=== PATIENT | male | born 1965 | race Caucasian/White ===

== ENCOUNTER 2016-11-28 23:57 | Emergency (ER) | payer MEDICARE ==
[2016-11-29 00:13] VITALS: BP 122/88
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
== END 2016-11-29 00:25 | disposition home or self-care (01) ==
LOC: ED 23:57
DX: K02.9 Dental caries, unspecified (principal); S92.302A Fracture of unspecified metatarsal bone(s), left foot, initial encounter for closed fracture; X58.XXXA Exposure to other specified factors, initial encounter; Y93.9 Activity, unspecified; Y99.9 Unspecified external cause status
CPT/HCPCS: 99283